=== PATIENT | female | born 1995 | race Caucasian/White ===

== ENCOUNTER 2016-09-30 23:43 | Emergency (ER) | payer OTHER ==
[~2016-09-30] VITALS: Ht 162.6 cm; Wt 56.1 kg
[2016-09-30 23:49] VITALS: TEMP 36.6; Ht 162.6 cm; Wt 56.1 kg
[2016-10-01] MEDS ORDERED: XYLOCAINE 1%/SOD BICARB 20 ML VIAL INFIL ONE
[2016-10-01] MEDS ORDERED: FLUT1AER5 INH (00:06)
[2016-10-01] MEDS ORDERED: BCPILLS PO (00:07)
[2016-10-01] MEDS ORDERED: BUPIVACAINE 0.5 % 5 MG/1 ML MPF 30ML VIAL INFIL ONE (00:45)
[2016-10-01] MEDS ORDERED: CEPH500C PO (02:07)
[2016-10-01] MEDS ORDERED: HYDR-5688 PO (02:07)
[2016-10-01] MEDS ORDERED: CEPHALEXIN MONOHYDRATE 250 MG CAP PO ONE (02:15)
[2016-10-01] MEDS ORDERED: CEPHALEXIN 500MG HOME PACK 1 EA BTL PO ONE (02:15)
[2016-10-01] MEDS ORDERED: NORCO 5/325MG HOME PACK PO ONE (02:15)
[2016-10-01 02:29] VITALS: BP 120/87; PULSE 58; O2SAT 100
--- NOTE | 2016-10-01 05:11 | EMERGENCY ROOM VISIT NOTE ---
History First contact with patient: 23:52 Chief Complaint: TOE PAIN, INJURY Stated Complaint: DROPPED WOODEN SHELF ON NAIL BED OF BIG TOE History of Present Illness The patient is a 21 year old female who presents to the Emergency Room with complaints of injury to her right great toe. The patient was moving into the dorms this evening, when she was placing items onto a wooden shelf that was affixed to the wall. The patient states the shelf broke free of the wall, fell , and struck her toe. She had immediate pain and bleeding around the toenail. She had difficulty walking because of the discomfort which she currently rates a 6/10 and worsens with ambulation. The patient believes that she is up-to- date on her tetanus. She has not had previous injury to this toe. The patient considers herself otherwise usually healthy. Review of Systems More than 10 systems were reviewed and otherwise negative with the exception of history of present illness. Past Medical/Surgical History No chronic medical disease Family History No pertinent family history Social History Smoking Status: Never Smoker Occupation Status: [email or web address] Current/Historical Medications Scheduled Control Pills ( Control Pills), 1 TAB PO DAILY Cephalexin Monohydrate (Keflex), 500 MG PO TID Fluticasone Propionate (Inhala (Flovent Diskus), 1 PUFFS INH BID Scheduled PRN Hydrocodone/Acetaminophen 5MG/325MG ([place] 5MG/325MG), 1 TABLET PO Q6 PRN for Pain Physical Exam Vital Signs Date Time Temp Pulse Resp B/P (MAP) Pulse Ox O2 Delivery O2 Flow Rate FiO2 10/01/16 02:29 58 17 120/87 100 10/01/16 01:23 60 16 122/93 100 Room Air 09/30/16 23:49 36.6 63 18 137/88 98 Room Air Pain Rating (0-10): 2.0 Physical Exam VITALS: Vitals are noted on the nurse's note and reviewed by myself. Vital signs stable. GENERAL: Well-developed, well-nourished, white female, who is in no acute distress and resting comfortably. Patient is cooperative with the examination. HEART: Regular rate and rhythm without murmurs gallops or rubs. LUNGS: Clear to auscultation bilaterally without wheezes, rales or rhonchi. No retractions or accessory muscle use. MUSCULOSKELETAL: There is obvious injury to the right great toe, primarily at the base of the right toenail which appears to be lifted out of anatomic location. There is bleeding noted around the cuticle area of the toenail. The patient does have full sensation and range of motion of the toe. She does not have tenderness to the surrounding structures. NEURO: Patient was alert and oriented to person place and time. CN II through XII grossly intact. Medical Decision & Procedures Medications Administered Medications (Trade) Dose Ordered Sig/Joselyn Route Start Time Stop Time Status Last Admin Dose Admin Cephalexin Monohydrate (Keflex 500MG Home Pack) 1 homepack NOW ONCE PO 10/01/16 02:15 10/01/16 02:16 DC 10/01/16 02:10 1 HOMEPACK Acetaminophen/ Hydrocodone Bitart ([place] 5/325mg Home Pack) 1 homepack UD ONCE PO 10/01/16 02:15 10/01/16 02:16 DC 10/01/16 02:10 1 HOMEPACK Cephalexin Monohydrate (Keflex Cap) 500 mg NOW ONCE PO 10/01/16 02:15 10/01/16 02:16 DC 10/01/16 02:10 500 MG Procedure Laceration repair. Patient elects to have their laceration repaired. Verbal consent was obtained to perform the procedure. There is an abundance of materials available for the procedure. Patient is not allergic to latex. Using sterile technique the right great toe was cleaned with Betadine. The area was sterilely draped. 6 ml of a 50:50 mix of 0.5% Sensorcaine and 1% buffered lidocaine was used to anesthetize the right great toe in a digital block fashion. Once the patient was anesthetized, the toenail was gently lifted and removed from the nailbed. This does reveal a 1.5 cm laceration to the nailbed. The wound was explored and a small amount of bone was appreciated along the lateral aspect concerning for open fracture. The wound was copiously irrigated with normal saline. The nailbed laceration was repaired using 6 total 5-0 Vicryl simple interrupted sutures with the wound edges being well approximated. The toenail was then reapproximated into an anatomic position and sutured into place utilizing 4 simple interrupted 4-0 Ethilon sutures. Hemostasis was achieved. The area was cleaned with sterile saline and dressed with bacitracin ointment and bandage. Patient tolerated the procedure well without complications. Blood loss was negligible. ED Course Physical exam and history were performed. Nursing notes, EMR, and Medication List were personally reviewed. Patient appears to have suffered injury to her right great toe as described above. On initial examination there does appear to be injury to the proximal aspect of the toenail. X-ray was obtained and appears to show a fracture of the distal phalanx. I performed a digital block on the toe, and was able to further evaluate it. There appears to be a nail bed laceration, and concern for open fracture. The wound was copiously irrigated and the laceration was repaired. The toenail was placed back into an anatomic position intact down with 4 stitches. The patient will need to follow with orthopedics for further care and management. The patient has a preference to see [facility] and was given information to follow with their service. She was provided Keflex here in the department as well as a prescription and of this medication. The patient will be given a short course of Vicodin for pain control, as well as a postop shoe and crutches. She was pleased with this, and otherwise invited back to the emergency department with any new, worsening, or concerning symptoms. The chart was completed utilizing [employer] Speech Voice Recognition Software. Grammatical errors, random word insertions, pronoun errors, and incomplete sentences are an occasional consequence of this system due to software limitations, ambient noise, and hardware issues. Any formal questions or concerns about the content, text, or information contained within the body of this dictation should be directly addressed to the provider for clarification. . Medical Decision Differential diagnosis includes, but is not limited to: Sprain, strain, fracture , dislocation, subluxation, contusion, open fracture, and others Medication Reconcilliation Current Medication List: was personally reviewed by me Impression Primary Impression: Open fracture of right great toe Additional Impression: Nailbed laceration, toe Departure Information Dispostion Home / Self-Care Condition GOOD Prescriptions Cephalexin Monohydrate (Keflex) 500 Mg Cap 500 MG PO TID for 10 Days, #30 CAP Prov: Marcelino Mcclellan, DAVIE 10/01/16 Hydrocodone/Acetaminophen 5MG/325MG ([place] 5MG/325MG) Tab 1 TABLET PO Q6 Y for Pain, #12 TAB For Initial Treatment Prov: Marcelino Mcclellan PA-C 10/01/16 Referrals Gallo Magallanes MD Forms HOME CARE DOCUMENTATION FORM, IMPORTANT VISIT INFORMATION Patient Instructions My [facility] Additional Instructions You were seen and evaluated today on an emergency basis only. This is not a substitute for, or an effort to provide, complete comprehensive medical care. It is not possible to recognize and treat all injuries or illnesses in a single emergency department visit. For this reason it is recommended that you followup with [facility] , Dr. Magallanes's office, by telephone this week for ongoing care and evaluation. Let go you were seen in the emergency department to help facilitate care. For baseline pain relief you may alternate ibuprofen and acetaminophen every 4 hours for pain control. Take 600 mg ibuprofen (Advil) and then 4 hours later take 1000 mg acetaminophen (Tylenol). Do not take more than 3000 mg acetaminophen in a single day. [place] (hydrocodone/acetaminophen) 5/325 mg every 6 hours as needed for worsening breakthrough pain. Do not drink or drive on [place]. This medication will likely make you tired. Do not take [place] and Tylenol at the same time as both contain acetaminophen. [place] may cause constipation. You may wish to take an [id number] stool softener like Colace if this occurs. Cephalexin(Keflex) 500mg: Take one pill 3 times daily for 10 days to prevent infection. All antibiotics can cause diarrhea. If this occurs and you feel worse or it does not resolve in 1-2 days follow up with your doctor or return to the Emergency Department as this could be signs of serious underlying problems. Any medication can cause an allergic reaction, stop the pills immediately and return to the ER for rash, hives, breathing difficulties, or swelling. Keep wound clean and dry. Do not allow any crusting or dried blood to accumulate on sutures. If this occurs, use a mild soap/water on a Q-tip to clean the wound. Do not use Peroxide to clean the wound as this can delay healing Use an antibiotic ointment like Bacitracin for 3-4 days, then let wound dry. You may bathe and shower as normal, but DO NOT SOAK the wound. Suture removal at the discretion of orthopedics. Return sooner for any signs of infection, increasing redness, swelling, or drainage. Use your postop shoe and crutches until otherwise instructed by orthopedics. You are welcome to return to the emergency department anytime with new, worsening, or concerning symptoms. Problem Qualifiers
--- NOTE | 2016-10-01 08:06 | DIAGNOSTIC IMAGING REPORT ---
RIGHT TOE(S) MIN 2 VIEWS CLINICAL HISTORY: Right great toe injury. COMPARISON: None FINDINGS: There is a mildly displaced markedly comminuted fracture of the mid to distal aspect of the distal phalanx of the right first toe. No additional fractures are identified on this exam. IMPRESSION: Mildly displaced, markedly comminuted fracture of the distal phalanx of the right first toe. Electronically signed by: Mahin Nelson M.D. 10/01/2016 8:04 AM Dictated Date/Time: 10/01/2016 8:03 AM
== END 2016-10-01 02:31 | disposition home or self-care (01) ==
LOC: C.EDB 23:44
DX: S92.421B Displaced fracture of distal phalanx of right great toe, initial encounter for open fracture (principal); S91.111A Laceration without foreign body of right great toe without damage to nail, initial encounter; W22.8XXA Striking against or struck by other objects, initial encounter; Y92.169 Unspecified place in school dormitory as the place of occurrence of the external cause; Z79.3 Long term (current) use of hormonal contraceptives